=== PATIENT | female | born 1955 | race Caucasian/White ===

== ENCOUNTER 2022-03-02 15:33 | Emergency (ER) | payer MEDICARE, OTHER ==
[~2022-03-02] VITALS: Ht 149.9 cm; Wt 56.7 kg
--- NOTE | 2022-03-02 15:36 | NUR ---
Cooper DELGADO and taken to lobby via w/c.
[2022-03-02 15:38] VITALS: BP 130/84
--- NOTE | 2022-03-02 15:38 | NUR ---
pt swabbed for covid and influenza at this time
--- NOTE | 2022-03-02 15:40 | NUR ---
66 y/o female biba from home, pt presents to ed with c/o cough, dizzy, chills, congestion. a&ox4, ambulates with steady gait. denies anyone home sick with same s/s. pt states she has intermittent cp with inspiration 6/10 pressure radiates to left arm. pmh: htn, thyroid disease, gerd allergy: penicillin
[2022-03-02 17:21] LABS: BASOPHILS # (AUTO) 0.1 K/uL (0.00-0.22); BASOPHILS % (AUTO) 1.1 % (0.0-2.0); EOSINOPHILS # (AUTO) 0.4 K/uL (0-0.4); EOSINOPHILS % (AUTO) 4.7 % (0.0-4.0); HEMATOCRIT 40.7 % (36-48); HEMOGLOBIN 13.6 g/dL (12.0-16.0); LYMPHOCYTES # (AUTO) 2.5 K/uL (2.5-16.5); LYMPHOCYTES % (AUTO) 32.5 % (20.5-51.1); MEAN CORPUSCULAR HEMOGLOBIN 30 pg (27-31); MEAN CORPUSCULAR HGB CONC 34 g/dL (33-37); MEAN CORPUSCULAR VOLUME 89.5 fL (80-94); MONOCYTES # (AUTO) 0.4 K/uL (0.8-1.0); MONOCYTES % (AUTO) 5.6 % (1.7-9.3); NEUTROPHILS # (AUTO) 4.3 K/uL (1.8-7.7); NEUTROPHILS % (AUTO) 56.1 % (42.2-75.2); PLATELET COUNT (AUTO) 407 K/uL (140-450); RED BLOOD CELL COUNT(AUTO) 4.55 MIL/uL (4.20-5.40); RED CELL DISTRIBUTION WIDTH 13.9 % (11.6-13.7); WHITE BLOOD COUNT (AUTO) 7.7 K/uL (4.8-10.8)
[2022-03-02 17:47] LABS: ALBUMIN 3.9 g/dL (3.4-5.0); ANION GAP 14.6 (8-16); ASPARTATE AMINOTRANSFERASE 21 U/L (15-37); CARBON DIOXIDE 28.4 mmol/L (21-32); CHLORIDE 103 mmol/L (98-107); CREATININE 0.7 mg/dL (0.6-1.3); GFR ARICAN-AMERICAN 107 mL/min (>90); GLUCOSE 93 mg/dL (74-106); SODIUM SERUM 142 mmol/L (136-145); TOTAL BILIRUBIN 0.5 mg/dL (0.0-1.0); UREA NITROGEN, BLOOD 18 mg/dL (7-18)
[2022-03-02] MEDS ORDERED: IBUPROFEN 600 MG TAB PO ONE (18:25)
[2022-03-02] MEDS ORDERED: LIDOCAINE 5% 1 EA PATCH TP SCH (18:30)
[2022-03-02] MEDS ORDERED: LID5T TP (18:39)
--- NOTE | 2022-03-02 19:30 | NUR ---
PT MEDICATED AND TAKEN TO [facility]
[2022-03-02 19:40] VITALS: BP 130/84
--- NOTE | 2022-03-02 19:40 | NUR ---
Patient discharged with v/s stable. Written and verbal after care instructions given and explained. Patient alert, oriented and verbalized understanding of instructions. Ambulatory with steady gait. All questions addressed prior to discharge. ID band removed. Patient advised to follow up with PMD. Rx of LIDODERM given. Patient educated on indication of medication including possible reaction and side effects. Opportunity to ask questions provided and answered.
== END 2022-03-02 19:40 | disposition home or self-care (01) ==
LOC: MED 15:33
DX: R53.1 Weakness (principal); Z20.822 Contact with and (suspected) exposure to COVID-19; E86.0 Dehydration; M79.10 Myalgia, unspecified site; R42 Dizziness and giddiness; R05.9 Cough, unspecified; I10 Essential (primary) hypertension; E03.9 Hypothyroidism, unspecified; Z88.0 Allergy status to penicillin; Z79.899 Other long term (current) drug therapy
CPT/HCPCS: 36415; 71045; 80053; 84484; 85025; 93005; 99285